=== PATIENT | female | born 1930 | race Caucasian/White ===

== ENCOUNTER 2017-03-06 03:39 | Observation (INO) | payer MEDICARE, OTHER ==
[~2017-03-06] VITALS: Ht 170.2 cm; Wt 66.6 kg
[~2017-03-06 03:39] MED LIST: ASPI-917 PO; ATOR40TA64 PO; CALC-191 PO; CAYE450C4 PO; CINN500C4 PO; CLOP75TA PO; GING500C2 PO; METF-200 PO; METF500T4 PO; TIMO15DR19 LEFT EYE; TUMERIC PO; UBID100C10 PO
--- NOTE | 2017-03-06 03:59 | ERPDOC ---
Departure Disposition Decision Date: Mar 06, 2017 Disposition Decision Time: 04:56 Disposition: 02 TO [facility] Impression Impression Impression: Primary Impression: Chest pain Chest pain type: precordial pain Qualified Codes: R07.2 - Precordial pain Severity: Severe Condition: Improved Seen By: Physician only Referrals: AVIVA TALBOT DO (Family) Problems/Meds/Labs Reviewed?: Yes Medications reviewed and manag: Yes Follow up care ordered?: Yes Mental Status: Alert HPI - Chest Pain General Chief Complaint: Chest Pain Stated Complaint: CP Time Seen by Provider: 03:46 Source: patient Exam Limitations: no limitations HPI - Chest Pain Initial Comments Patient awoke at home at 2:30 this morning with symptoms of generalized abdominal fullness as though she needed to have a bowel movement. When she got up to go to the bathroom she noticed she was having chest tightness and heaviness with a feeling that her throat was closing in, similar to when she has had cardiac chest pain in the past. Left 3 nitroglycerin at home with minimal improvement, and thereafter called her son to take her to the ER for evaluation. Patient has significant past medical history for coronary artery disease with multiple catheterizations and one stent placed. Occurred At: home Onset/Timing: Rapid Duration: 1-3 hrs Activities at Onset/Context: sleep Location: substernal Quality: tightness Associated Symptoms: DENIES: abdominal pain, back pain, diaphoresis, dizziness , edema, fast HR, fatigue, fever/chills, headache, heartburn, irregular HR, nausea/vomiting, rash, shortness of breath, slow HR, swelling/lump in chest, syncope, weakness Chest Pain Radiation: no radiation Nitro Today/Relief: 0.4 mg x 3, provided at home Aspirin Treatment Today: 325 mg x 1, provided at home Prior Chest Pain/Cardiac Annette: cardiac cath Hx of Similar Symptoms: Yes Allergies: Coded Allergies: No Known Drug Allergies (Verified Allergy, Unknown, 03/06/17) Past History Patient Surgical History heart cath per Dr. Gibson, 03-26-16. colonoscopy 03-25-12. EGD . bilateral distal tributary vessels on 07-01-[address] Casarez Past Medical History Metabolic: cancer, diabetes, hypercholesterolemia, hypertension Cardiac: CAD Musculoskeletal: back pain, osteoarthritis Surgical History General: appendix, gallbladder, other, tonsils Cardiac: cardiac bypass, cardiac cath, cardiac stent Vaccines Hx Influenza Vaccination: Yes (FALL 2013) Hx Pneumococcal Vaccination: Yes (2013) Social History Smoking Status: Never smoker Does patient use chewing tobac: No Second Hand Exposure: No Substance Use Type: does not use Alcohol Intake: none Marital Status: Housing: house Review of Systems Constitutional Constitutional: DENIES: appetite decrease, appetite increase, chills, dizziness , fever, weakness ENMT Ears: DENIES: pain Hearing: DENIES: hearing loss, tinnitus Balance: DENIES: vertigo Mouth/Throat: DENIES: change in swallowing, change in voice, hoarsness, painful swallowing, sore throat Cardiovascular Cardiac: chest pain, DENIES: dyspnea on exertion Rhythm/Rate: DENIES: irregular beat, palpitations, tachycardia Vascular: DENIES: pedal edema Pulmonary Respiratory: DENIES: cough, dyspnea, pleuritic chest pain GI Upper Abdomen: DENIES: dysphagia, heartburn/indigestion, nausea, pain, vomiting Lower Abdomen: DENIES: blood in stool, constipation, diarrhea, pain Comments Generalized low abdominal fullness General: DENIES: burning, dysuria, frequency, pain, urgency Musculoskeletal General: DENIES: cramps, joint pain, joint swelling, pain, weakness Integumentary Skin: DENIES: rash, sores Neurological General: DENIES: headache, numbness, tingling, vertigo, weakness Psychiatric Psychiatric: DENIES: anxiety, depression, nervousness Physical Exam General General Nourishment: well nourished, well developed, appears stated age, no acute distress General Body Habitus: well groomed Vitals and Pain First Documented Vital Signs Date Time Temp Pulse Resp B/P Pulse Ox O2 Delivery O2 Flow Rate FiO2 03/06/17 03:41 98.2 52 19 138/67 97 Room Air Weight: Kilograms: Height (feet): 5 Height (inches): 8.00 Triage Pain Scale: RN VS reviewed by Provider: Yes Normal Exams: Head: Normocephalic w/o trauma Eyes: Pupils are PERRLA w/ EOMI, No scleral icterus, irritation, or foreign bodies noted ENMT: No facial trauma, nasal exudates, pharyngeal erythema, or exudates are noted Neck: Full range of motion, without adenopathy, JVD, bruits or thyromegaly Chest/Resp: Clear all griffiths, with good airflow, and symmetry bilaterally CV: Regular rate and rhythm, without murmur or gallop, Pulses 2+ all extremities, capillary refill, <2 seconds all ext., no pedal edema noted Lymphatic: No lymphadenopathy, or lymphedema noted Musculoskeletal: No tenderness, or deformity noted, good range of motion, all extremities Integumentary: No rashes, hives, or bruising noted, hair and nails, without abnormality Neurologic: Patient is alert, and oriented, cranial nerves, motor/sensory/ cerebellar, exams w/o gross deficits, to observation Psychiatric: Patient exhibits, appropriate attention, emotion and affect Abdomen (brief) Abdominal Brief: FOUND: bowel normo active x4, soft, tender (minimal low abdominal tenderness, no guarding no rebounding), NOT FOUND: distended, hepatosplenomegaly Progress Results/Orders Orders Procedure Category Date Status Time EKG EKG 03/06/17 Logged Cbc W/Auto LAB 03/06/17 Complete Diff-Reflex Manual 03:54 Cmp - Comprehensive LAB 03/06/17 Complete Metabolic 03:54 Probnp LAB 03/06/17 Complete 03:54 Troponin I W LAB 03/06/17 Complete Hemolysis Index 03:54 Chest 1 View RAD 03/06/17 Taken 03:54 Iv Lock (Ed Only) EDM 03/06/17 Transmitted 03:54 Nitroglycerin PHA 03/06/17 Complete Ointment (Nitro-Bid) 04:00 Nitroglycerin PHA 03/06/17 Complete (Nitrostat) 04:00 Lipase LAB 03/06/17 Complete Metoclopramide PHA 03/06/17 Complete (Reglan Inj) 04:00 Normal Saline (Normal PHA 03/06/17 Complete Saline Iv) 04:00 Lab Results Laboratory Tests Test 03/06/17 03:51 White Blood Count 7.4T/MM3 Red Blood Count 3.62M/MM3 Hemoglobin 11.2GM/DL Hematocrit 33.2% Mean Corpuscular Volume 91.7UM3 Mean Corpuscular Hemoglobin 30.9UUG Mean Corpuscular Hemoglobin Concent 33.7GM/DL RDW Standard Deviation 45.1FL Platelet Count 130T/MM3 Mean Platelet Volume 10.6UM3 Immature Granulocyte % (Auto) 0.1% Neutrophils (%) (Auto) 47.1% Lymphocytes (%) (Auto) 44.6% Monocytes (%) (Auto) 6.5% Eosinophils (%) (Auto) 1.6% Basophils (%) (Auto) 0.1% Absolute Immature Granulocyte (auto 0.01T/MM3 Absolute Neutrophils (auto) 3.5T/MM3 Absolute Lymphocytes (auto) 3.3T/MM3 Absolute Monocytes (auto) 0.5T/MM3 Absolute Eosinophils (auto) 0.1T/MM3 Absolute Basophils (auto) 0.0T/MM3 Turbidity < 20 Sodium Level 147MEQ/L Potassium Level 4.1MEQ/L Chloride Level 108MEQ/L Carbon Dioxide Level 26MEQ/L Anion Gap 13MEQ/L Blood Urea Nitrogen 16.0MG/DL Creatinine 0.6MG/DL Glomerular Filtration Rate Calc 95 BUN/Creatinine Ratio 27RATIO Glucose Level 108MG/DL Calculated Osmolality 284MOSM/KG Calcium Level 10.1MG/DL Total Bilirubin 1.90MG/DL Icterus Index < 2 Aspartate Amino Transf (AST/SGOT) 23U/L Alanine Aminotransferase (ALT/SGPT) 29U/L Alkaline Phosphatase 37U/L Troponin I < 0.012ng/ml CB-Vin-T-Type Natriuretic Peptide 211PG/ML Total Protein 6.1G/DL Albumin 3.8G/DL Globulin 2.3G/DL Albumin/Globulin Ratio 1.7RATIO Lipase 175U/L Chemistry Specimen Hemolysis < 15 Medications Current ED Medications Nitroglycerin (Nitro-Bid) 1 inch O ONCE TOP Last administered on 03/06/17 04: 06; Start 03/06/17 at 04:00; Stop 03/06/17 at 04:01; Status DC Nitroglycerin (Nitrostat) 0.4 mg O ONCE SL Last administered on 03/06/17 04: 05; Start 03/06/17 at 04:00; Stop 03/06/17 at 04:01; Status DC Metoclopramide HCl 6 mg 6 mg O ONCE IV Last administered on 03/06/17 04:04; Start 03/06/17 at 04:00; Stop 03/06/17 at 04:01; Status DC Sodium Chloride (Normal Saline IV) 1,000 ml @ 0 mls/hr Q0M ONCE IV Last administered on 03/06/17 04:06; Start 03/06/17 at 04:00; Stop 03/06/17 at 04:01 ; Status DC Progress Progress EKG shows a normal sinus rhythm without ischemia or infarction. Patient does have periodic supraventricular beats CBC- n CMP/L - n Troponin - n Chest x-ray - n Patient had significant improvement after nitroglycerin with 1 inch of paste 2 almost complete resolution of pain. Case discussed with Dr. Talbot, will admit for chest pain rule out, observe on telemetry, with consult to AVIVA Francis MD Mar 06, 2017 03:59
[2017-03-06] MEDS ORDERED: NITROGLYCERIN 0.4 MG SUBLINGUAL TABLET SL ONE (04:00)
[2017-03-06] MEDS ORDERED: NORMAL SALINE 1,000 ML IV ONE (04:00)
[2017-03-06] MEDS ORDERED: NITROGLYCERIN 2% OINTMENT 1 G PACKET TOP ONE (04:00)
[2017-03-06] MEDS ORDERED: METOCLOPRAMIDE 10mg/2ml INJECTION IV ONE (04:00)
[2017-03-06 04:06] LABS: BASOPHILS % (AUTO) 0.1 % (0-2); EOSINOPHILS # (AUTO) 0.1 T/MM3 (0-0.5); EOSINOPHILS % (AUTO) 1.6 % (0-4); HCT - HEMATOCRIT 33.2 % (36-46); HGB - HEMOGLOBIN 11.2 GM/DL (12-16); IMMATURE GRANULOCYTE # (AUTO) 0.01 T/MM3 (0.00-0.03); IMMATURE GRANULOCYTE % (AUTO) 0.1 % (0.0-0.5); LYMPHOCYTES # (AUTO) 3.3 T/MM3 (1-4.8); LYMPHOCYTES % (AUTO) 44.6 % (23-45); MEAN CORPUSCULAR HGB 30.9 UUG (26-34); MEAN CORPUSCULAR HGB CONC(MCHC 33.7 GM/DL (31-37); MEAN CORPUSCULAR VOLUME 91.7 UM3 (80-100); MEAN PLATELET VOLUME 10.6 UM3 (9.4-12.4); MONOCYTES # (AUTO) 0.5 T/MM3 (0-0.8); MONOCYTES % (AUTO) 6.5 % (0-9.0); NEUTROPHILS #(AUTO)-ABSOLUTE 3.5 T/MM3 (1.8-7.7); NEUTROPHILS % (AUTO) 47.1 % (33-66); RED BLOOD COUNT 3.62 M/MM3 (4.00-5.20); WBC - WHITE BLOOD COUNT 7.4 T/MM3 (4.5-11.0)
[2017-03-06 04:16] LABS: ALBUMIN 3.8 G/DL (3.5-5.0); ALBUMIN/GLOBULIN RATIO 1.7 RATIO (1.1-2.2); ALKALINE PHOSPHATASE 37 U/L (38-126); ALT (SGPT) 29 U/L (9-52); ANION GAP 13 MEQ/L (5-15); AST (SGOT) 23 U/L (14-36); BUN/CREATININE RATIO 27 RATIO (6-26); CALCIUM 10.1 MG/DL (8.4-10.2); CHLORIDE 108 MEQ/L (98-107); CO2 - CARBON DIOXIDE 26 MEQ/L (22-30); CREATININE 0.6 MG/DL (0.7-1.2); GLOMERULAR FILTRATION RATE 95; GLUCOSE 108 MG/DL (65-110); POTASSIUM 4.1 MEQ/L (3.6-5); SODIUM 147 MEQ/L (134-144); TOTAL PROTEIN 6.1 G/DL (6.3-8.2)
--- NOTE | 2017-03-06 04:25 | NUR ---
IMAGING IN ROOM FOR PORTABLE CXR AT THIS TIME.
[2017-03-06 04:26] LABS: PROBNP 211 PG/ML (0-175)
--- NOTE | 2017-03-06 04:30 | NUR ---
CP PT REPORTS CP IS IMPROVED AND RATES IT 1/10 AT THIS TIME.
[2017-03-06] MEDS ORDERED: SITA1TAB2 PO (04:41)
[2017-03-06] MEDS ORDERED: NITROGLYCERIN 0.4 MG SL PRN (05:00)
--- NOTE | 2017-03-06 05:20 | NUR ---
REPORT GIVEN TO SHREYA BURTON AT THIS TIME.
--- NOTE | 2017-03-06 05:37 | NUR ---
DEPART PT IS TRANSFERRED VIA CART TO MEDICAL UNIT, CARE IS TRANSFERRED TO SHREYA RN WHO IS AT BEDSIDE.
--- NOTE | 2017-03-06 05:37 | NUR ---
ADMIT STATUS ambulates from cart to BR. States slight light-headedness as up. Instructed to call for assist as up. Denies chest pain or pressure. Denies dyspnea with the activity. Lung with crackles bases. Cooperative with admission process. Tele indicates SB
[2017-03-06 05:48] VITALS: Ht 170.2 cm; Wt 66.6 kg
[2017-03-06 05:49] VITALS: BP 140/66; PULSE 58; RESP 20; TEMP 97.7; O2SAT 96
--- NOTE | 2017-03-06 06:40 | NUR ---
Dr. Dr. Jones is aware of pt. admission, orders received for home meds to be restarted, Dr. Gibson to be consulted.
--- NOTE | 2017-03-06 07:10 | NUR ---
comfort states "ache" at back of L shoulder, radiating down L arm. States pain in L hand as peanut roaster tightly. VS stable, no changes noted on tele strip. Pt. states "I think it is just a muscle ache". Denies pain at chest area. Instructed to notify if symptoms persist or get worse. Report given to day RN, will monitor
[2017-03-06 07:18] VITALS: BP 130/65; PULSE 55; RESP 20; O2SAT 99
[2017-03-06 07:52] VITALS: BP 111/57; PULSE 56; RESP 16; TEMP 97.7; O2SAT 98
--- NOTE | 2017-03-06 07:53 | DI ---
Indication: ITS.REASON: chest pain PROCEDURE: CHEST 1 VIEW: Encounter: Initial Comparison: Chest CT dated October 05, 2016 and chest x-ray dated October 08, 2016 Findings: The lungs are clear. No pleural effusion or pneumothorax. Heart size is unchanged. There is possible thickening of the right paratracheal stripe, some of which could be due to artifact from rotation. Pulmonary vascularity is normal. Impression: No focal pneumonia. .
[2017-03-06] MEDS ORDERED: METFORMIN 500 MG TABLET PO SCH (08:00)
[2017-03-06] MEDS ORDERED: SITAGLIPTIN 100 MG TABLET PO SCH (08:00)
--- NOTE | 2017-03-06 08:00 | NUR ---
Pain update Patient thinks her pain in her left shoulder was probably a pulled muscle. States pain has improved. Denies any needs at this time.
[2017-03-06 08:07] VITALS: PULSE 54
[2017-03-06] MEDS ORDERED: POM CLOPIDOGREL 75 MG TABLET PO SCH (09:00)
[2017-03-06] MEDS ORDERED: COENZYME Q10 200 MG TABLET PO SCH (09:00)
[2017-03-06] MEDS ORDERED: MULTIVITAMIN + MINERAL TABLET PO SCH (09:00)
[2017-03-06] MEDS ORDERED: ASPIRIN *EC* 325mg TABLET PO SCH (09:00)
[2017-03-06] MEDS ORDERED: GINGER 500 MG PO SCH (09:00)
[2017-03-06] MEDS ORDERED: TURMERIC 500 MG PO SCH (09:00)
[2017-03-06] MEDS ORDERED: CINNAMON 500 MG PO SCH (09:00)
[2017-03-06] MEDS ORDERED: CAYENNE PO SCH (09:00)
[2017-03-06] MEDS ORDERED: CALCIUM 600mg + VIT D 400 TABLET PO SCH (09:00)
[2017-03-06] MEDS: SITAGLIPTIN PO SCH ×2 (11:07→17:23)
[2017-03-06] MEDS: METFORMIN PO SCH ×2 (11:07→17:23)
--- NOTE | 2017-03-06 12:20 | CONSPD ---
OCTAVIO BHAKTA [employer] 03/06/17 1157: Consultation Info Date DATE: 03/06/17 TIME: 11:54 Date of Consultation: Mar 06, 2017 Attending Physician: Aviva Talbot DO Reason for Consultation: chest pain HPI - Adult Date DATE: 03/06/17 TIME: 11:54 General Date of Admission Date of Admission: Mar 06, 2017 at 04:57 Chief Complaint: chest pain History of Present Illness Tiffany is an 86 year old female who is well known to Dr. 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 When she got up to go to the bathroom she noticed she was having chest tightness and heaviness with a feeling that her throat was closing in, similar to when she has had cardiac chest pain in the past. Took 3 nitroglycerin at home with minimal improvement, and thereafter called her son to take her to the ED for evaluation. She was cathed in July after not taking her Plavix for a period of time, and her LAD stent was found to be widely patent. Past Medical History Past Medical History Metabolic: cancer, diabetes, hypercholesterolemia, hypertension Cardiac: CAD Musculoskeletal: back pain, osteoarthritis Surgical History General: appendix, gallbladder, other, tonsils Cardiac: cardiac bypass, cardiac cath, cardiac stent Current Medications Home Meds Active Scripts Acetaminophen (Tylenol Extra Strength) 500 Mg Tablet, 1-2 TAB PO Q6H Y for PAIN/ FEVER for 30 Days, TAB Prov:AVIVA TALBOT DO 03/06/17 Clopidogrel Bisulfate (Plavix) 75 Mg Tablet, 75 MG PO DAILY for 30 Days, #30 TAB 10 Refills Prov:EMILY CROWDER 08/02/16 Reported Medications Sitagliptin Phos/Metformin HCl (Janumet 50-500 mg Tablet) 1 Tab Tablet, 1 TAB PO BID, #60 TAB 5 Refills 03/06/17 Aspirin *EC* (Aspirin EC) 325 Mg Tablet., 1 TAB PO DAILY, #30 TAB 5 Refills 08/01/16 Calcium Carbonate/Vitamin D3 (Calcium + Vitamin D Tablet) 1 Each Tablet, 1 TAB PO DAILY 04/28/16 Atorvastatin Calcium (Atorvastatin Calcium) 40 Mg Tablet, 40 MG PO HS 04/28/16 [Tumeric] No Conflict Check, 450 MG PO DAILY 03/24/12 Zoya (Zoya) 500 Mg Capsule, 500 MG PO DAILY 03/24/12 Cinnamon Bark (Cinnamon) 500 Mg Capsule, 500 MG PO DAILY 03/24/12 Cayenne (Cayenne) 450 Mg Capsule, 450 MG PO DAILY 03/24/12 Timolol (Betimol) 15 Ml Drops, 15 ML LEFT EYE HS 03/24/12 Ubidecarenone (Coq-10) 100 Mg Capsule, 100 MG PO DAILY 10/17/10 Allergies: Coded Allergies: No Known Drug Allergies (Verified Allergy, Unknown, 03/06/17) Family History NOT FOUND: CAD, CHF Vaccines 08/2016 NO BROKEN SKIN Social History Smoking Status: Never smoker Does patient use chewing tobac: No Second Hand Exposure: No Substance Use Type: does not use Alcohol Intake: none Marital Status: Housing: house Current Occupational Status: retired Advance Directives: Yes DPOA for Healthcare Only Review of Systems Constitutional: DENIES: chills, dizziness, fever, syncope, weakness Eyes General: DENIES: pain Vision: DENIES: double vision ENMT Hearing: DENIES: tinnitus Balance: DENIES: vertigo Sinuses: NOT FOUND: rhinorrhea Mouth/Throat: DENIES: sore throat Cardiovascular chest pain, murmur, DENIES: dyspnea on exertion, orthopnea, paroxysmal nocturnal dysp Rhythm/Rate: DENIES: irregular beat, palpitations, tachycardia Vascular: pedal edema Pulmonary Respiratory: DENIES: cough, sputum GI Upper Abdomen: other (abdominal fullness), DENIES: nausea, vomiting Lower Abdomen: DENIES: blood in stool, diarrhea General: DENIES: dysuria Integumentary Skin: DENIES: rash, sores Neurological General: DENIES: headache, numbness, syncope, weakness All Other Systems All Other Systems: Reviewed (remainder of 10-point ROS Neg.) Physical Exam General General Nourishment: well nourished, well developed, apparent age General Body Habitus: well groomed Vital Signs Vital Signs Date Time Temp Pulse Resp B/P Pulse Ox O2 Delivery O2 Flow Rate FiO2 03/06/17 08:07 54 03/06/17 07:52 97.7 16 111/57 98 Room Air Height (Feet): 5 Height (Inches): 7.00 Telemetry Rhythm: Sinus Rhythm Telemetry Ectopy: PVC ENMT Brief: FOUND: mucosa moist Neck Brief: NOT FOUND: JVD, carotid bruits Respiratory Brief: FOUND: clear all griffiths, equal bilaterally, NOT FOUND: rales , wheezes Cardiovascular (brief) Cardiac Brief: FOUND: murmur (I/ systolic ejection murmur), pedal edema ( trace), regular rate, regular rhythm Abdomen (brief) Abdominal Brief: FOUND: BS normo active x4, soft, NOT FOUND: tender Integumentary (brief) Integumentary Brief: FOUND: dry, pink, warm Neurologic RN Documented GCS Eye Opening: Verbal: Motor: Total: Psychiatric (brief) FOUND: alert, oriented Laboratory Laboratory Tests Test 03/06/17 03:51 03/06/17 09:06 White Blood Count 7.4T/MM3 Red Blood Count 3.62M/MM3 Hemoglobin 11.2GM/DL Hematocrit 33.2% Mean Corpuscular Volume 91.7UM3 Mean Corpuscular Hemoglobin 30.9UUG Mean Corpuscular Hemoglobin Concent 33.7GM/DL RDW Standard Deviation 45.1FL Platelet Count 130T/MM3 Mean Platelet Volume 10.6UM3 Immature Granulocyte % (Auto) 0.1% Neutrophils (%) (Auto) 47.1% Lymphocytes (%) (Auto) 44.6% Monocytes (%) (Auto) 6.5% Eosinophils (%) (Auto) 1.6% Basophils (%) (Auto) 0.1% Absolute Immature Granulocyte (auto 0.01T/MM3 Absolute Neutrophils (auto) 3.5T/MM3 Absolute Lymphocytes (auto) 3.3T/MM3 Absolute Monocytes (auto) 0.5T/MM3 Absolute Eosinophils (auto) 0.1T/MM3 Absolute Basophils (auto) 0.0T/MM3 Turbidity < 20 Sodium Level 147MEQ/L Potassium Level 4.1MEQ/L Chloride Level 108MEQ/L Carbon Dioxide Level 26MEQ/L Anion Gap 13MEQ/L Blood Urea Nitrogen 16.0MG/DL Creatinine 0.6MG/DL Glomerular Filtration Rate Calc 95 BUN/Creatinine Ratio 27RATIO Glucose Level 108MG/DL Calculated Osmolality 284MOSM/KG Calcium Level 10.1MG/DL Total Bilirubin 1.90MG/DL Icterus Index < 2 Aspartate Amino Transf (AST/SGOT) 23U/L Alanine Aminotransferase (ALT/SGPT) 29U/L Alkaline Phosphatase 37U/L Troponin I < 0.012ng/ml < 0.012ng/ml XH-Lqr-V-Type Natriuretic Peptide 211PG/ML Total Protein 6.1G/DL Albumin 3.8G/DL Globulin 2.3G/DL Albumin/Globulin Ratio 1.7RATIO Lipase 175U/L Chemistry Specimen Hemolysis < 15 < 15 Laboratory Tests Test 03/06/17 03:51 03/06/17 09:06 White Blood Count 7.4T/MM3 Red Blood Count 3.62M/MM3 Hemoglobin 11.2GM/DL Hematocrit 33.2% Mean Corpuscular Volume 91.7UM3 Mean Corpuscular Hemoglobin 30.9UUG Mean Corpuscular Hemoglobin Concent 33.7GM/DL RDW Standard Deviation 45.1FL Platelet Count 130T/MM3 Mean Platelet Volume 10.6UM3 Immature Granulocyte % (Auto) 0.1% Neutrophils (%) (Auto) 47.1% Lymphocytes (%) (Auto) 44.6% Monocytes (%) (Auto) 6.5% Eosinophils (%) (Auto) 1.6% Basophils (%) (Auto) 0.1% Absolute Immature Granulocyte (auto 0.01T/MM3 Absolute Neutrophils (auto) 3.5T/MM3 Absolute Lymphocytes (auto) 3.3T/MM3 Absolute Monocytes (auto) 0.5T/MM3 Absolute Eosinophils (auto) 0.1T/MM3 Absolute Basophils (auto) 0.0T/MM3 Turbidity < 20 Sodium Level 147MEQ/L Potassium Level 4.1MEQ/L Chloride Level 108MEQ/L Carbon Dioxide Level 26MEQ/L Anion Gap 13MEQ/L Blood Urea Nitrogen 16.0MG/DL Creatinine 0.6MG/DL Glomerular Filtration Rate Calc 95 BUN/Creatinine Ratio 27RATIO Glucose Level 108MG/DL Calculated Osmolality 284MOSM/KG Calcium Level 10.1MG/DL Total Bilirubin 1.90MG/DL Icterus Index < 2 Aspartate Amino Transf (AST/SGOT) 23U/L Alanine Aminotransferase (ALT/SGPT) 29U/L Alkaline Phosphatase 37U/L Troponin I < 0.012ng/ml < 0.012ng/ml [id number]-Gmk-[id number]-Type Natriuretic Peptide 211PG/ML Total Protein 6.1G/DL Albumin 3.8G/DL Globulin 2.3G/DL Albumin/Globulin Ratio 1.7RATIO Lipase 175U/L Chemistry Specimen Hemolysis < 15 < 15 EKG SR, occasional PVCs Radiology DATE OF EXAM: 03/06/17 ORDERING DOCTOR: AVIVA MULLER MD TYPE OF EXAM: CHEST 1 VIEW REASON FOR EXAM: chest pain Indication: ITS.REASON: chest pain PROCEDURE: CHEST 1 VIEW: Encounter: Initial Comparison: Chest CT dated October 05, 2016 and chest x-ray dated October 08, 2016 Findings: The lungs are clear. No pleural effusion or pneumothorax. Heart size is unchanged. There is possible thickening of the right paratracheal stripe, some of which could be due to artifact from rotation. Pulmonary vascularity is normal. Impression: No focal pneumonia. Impression/Recommendation Problems: (1) Chest pain Status: Acute Assessment & Plan: Chest pain which radiated into shoulder and neck which occurred at rest, not relieved initially with nitro, non reproducible, no accompanied symptoms. Reports had shoulder pain later this morning that felt muscular in nature. EKG without ischemic changes, troponin negative X2. Not likely Cardiac. (2) Atherosclerotic heart disease of [place] coronary artery with other forms of angina pectoris Status: Chronic Assessment & Plan: Stent to LAD in March, Heart cath done in July for chest pain while patient was off Plavix, Stent was widely patent at that time. (3) Non-rheumatic tricuspid valve insufficiency Status: Chronic Assessment & Plan: Continue current therapy with routine monitoring (4) Diabetes mellitus Status: Chronic Assessment & Plan: Per Dr. Talbot. (5) Mixed hyperlipidemia Status: Chronic Assessment & Plan: Takes Crestor 10mg daily as did not tolerate Lipitor Recommendation Chest pain which radiated into shoulder and neck which occurred at rest, not relieved initially with nitro, non reproducible, no accompanied symptoms. Reports had shoulder pain later this morning that felt muscular in nature. EKG without ischemic changes, troponin negative X2. Not likely Cardiac. Thank you for allowing us to participate in this patient's care. BETH HERRERA MD 03/07/17 1352: Past Medical History Current Medications Home Meds Active Scripts Acetaminophen (Tylenol Extra Strength) 500 Mg Tablet, 1-2 TAB PO Q6H Y for PAIN/ FEVER for 30 Days, TAB Prov:AVIVA TALBOT DO 03/06/17 Clopidogrel Bisulfate (Plavix) 75 Mg Tablet, 75 MG PO DAILY for 30 Days, #30 TAB 10 Refills Prov:EMILY CROWDER ALISA 08/02/16 Reported Medications Sitagliptin Phos/Metformin HCl (Janumet 50-500 mg Tablet) 1 Tab Tablet, 1 TAB PO BID, #60 TAB 5 Refills 03/06/17 Aspirin *EC* (Aspirin EC) 325 Mg Tablet.dr, 1 TAB PO DAILY, #30 TAB 5 Refills 08/01/16 Calcium Carbonate/Vitamin D3 (Calcium + Vitamin D Tablet) 1 Each Tablet, 1 TAB PO DAILY 04/28/16 Atorvastatin Calcium (Atorvastatin Calcium) 40 Mg Tablet, 40 MG PO HS 04/28/16 [Tumeric] No Conflict Check, 450 MG PO DAILY 03/24/12 Zoya (Zoya) 500 Mg Capsule, 500 MG PO DAILY 03/24/12 Cinnamon Bark (Cinnamon) 500 Mg Capsule, 500 MG PO DAILY 03/24/12 Cayenne (Cayenne) 450 Mg Capsule, 450 MG PO DAILY 03/24/12 Timolol (Betimol) 15 Ml Drops, 15 ML LEFT EYE HS 03/24/12 Ubidecarenone (Coq-10) 100 Mg Capsule, 100 MG PO DAILY 10/17/10 Allergies: Coded Allergies: No Known Drug Allergies (Verified Allergy, Unknown, 03/06/17) Impression/Recommendation Recommendation After examining the patient I agree with the above assessment. I am involved in the formulation of the patient's plan of care. OCTAVIO BHAKTA APRN Mar 06, 2017 11:57 BETH HERRERA MD Mar 07, 2017 13:52
--- NOTE | 2017-03-06 13:34 | NUR ---
Status Patient alert and oriented. Has denied any discomfort since this am. Patient does complain of some lightheadedness/dizziness when up ambulating.
--- NOTE | 2017-03-06 13:51 | HPPDOC ---
HPI - Adult Date DATE: 03/06/17 TIME: 13:44 General Chief Complaint: chest pain History of Present Illness Karyn was admitted through the emergency department last evening after having chest pain that was relieved with nitroglycerin. She indicates that she took a total of 3 nitroglycerin at home prior to being brought to the emergency department. At that time her chest pain was not fully relieved. Upon arrival at the emergency department she was given 1 additional sublingual nitroglycerin and an inch of nitroglycerin paste on her chest. This relieved her pain. She did undergo previous heart catheterization which demonstrated diffuse disease along with a widely patent stent in the LAD. Past Medical History Past Medical History Patient's Medical History: (1) CAD (coronary artery disease) (2) Diabetes mellitus (3) Mixed hyperlipidemia (4) Non-rheumatic tricuspid valve insufficiency (5) Other secondary pulmonary hypertension (6) Nonrheumatic aortic valve insufficiency (7) Atherosclerotic heart disease of [place] coronary artery with other forms of angina pectoris (8) Chest pain Surgical History Patient's Surgical History: heart cath per Dr. Gibson, 03-26-16. colonoscopy 03-25-12. EGD . bilateral distal tributary vessels on 07-01-[address] Casarez Current Medications Home Meds Active Scripts Clopidogrel Bisulfate (Plavix) 75 Mg Tablet, 75 MG PO DAILY for 30 Days, #30 TAB 10 Refills Prov:EMILY CROWDER 08/02/16 Reported Medications Sitagliptin Phos/Metformin HCl (Janumet 50-500 mg Tablet) 1 Tab Tablet, 1 TAB PO BID, #60 TAB 5 Refills 03/06/17 Aspirin *EC* (Aspirin EC) 325 Mg Tablet., 1 TAB PO DAILY, #30 TAB 5 Refills 08/01/16 Calcium Carbonate/Vitamin D3 (Calcium + Vitamin D Tablet) 1 Each Tablet, 1 TAB PO DAILY 04/28/16 Atorvastatin Calcium (Atorvastatin Calcium) 40 Mg Tablet, 40 MG PO HS 04/28/16 [Tumeric] No Conflict Check, 450 MG PO DAILY 03/24/12 Zoya (Zoya) 500 Mg Capsule, 500 MG PO DAILY 03/24/12 Cinnamon Bark (Cinnamon) 500 Mg Capsule, 500 MG PO DAILY 03/24/12 Cayenne (Cayenne) 450 Mg Capsule, 450 MG PO DAILY 03/24/12 Timolol (Betimol) 15 Ml Drops, 15 ML LEFT EYE HS 03/24/12 Ubidecarenone (Coq-10) 100 Mg Capsule, 100 MG PO DAILY 10/17/10 Allergies: Coded Allergies: No Known Drug Allergies (Verified Allergy, Unknown, 03/06/17) Family History Family History: non contributory/unavailable at this time Social History Smoking Status: Never smoker Does patient use chewing tobac: No Second Hand Exposure: No Substance Use Type: does not use Alcohol Intake: none Marital Status: Housing: house Current Occupational Status: retired Advance Directives: Yes DPOA for Healthcare Only Review of Systems Constitutional: DENIES: chills, dizziness, fever, insomnia, weight gain, weight loss Cardiovascular chest pain, murmur, see HPI, DENIES: dyspnea on exertion, paroxysmal nocturnal dysp Pulmonary Respiratory: DENIES: cough, hyperventilation, pleuritic chest pain, sputum GI Upper Abdomen: DENIES: dysphagia, food intolerances, hematemesis, nausea, vomiting Musculoskeletal Comments She has a history of back pain requiring back surgery Neurological General: weakness, DENIES: headache, numbness, seizures, syncope Psychiatric Psychiatric: DENIES: depression, emotional instability, nervousness Hematologic/Lymphatic DENIES: anemia, bleeding gums, easy bruising, frequent nosebleeds Allergic/Immunological DENIES: frequent infections, hives, sneezing All Other Systems All Other Systems: Reviewed (remainder of 10-point ROS Neg.) Physical Exam General General Nourishment: well nourished, well developed, apparent age, adult General Body Habitus: well groomed Vital Signs Vital Signs Date Time Temp Pulse Resp B/P Pulse Ox O2 Delivery O2 Flow Rate FiO2 03/06/17 08:07 54 03/06/17 07:52 97.7 16 111/57 98 Room Air Height (Feet): 5 Height (Inches): 7.00 Telemetry Rhythm: Sinus Rhythm Telemetry Ectopy: PVC Eyes Brief: FOUND: EOMI, PERRL, NOT FOUND: scleral icterus Neck Brief: NOT FOUND: adenopathy, carotid bruits, thyromegaly Respiratory Brief: FOUND: clear all griffiths, equal bilaterally, NOT FOUND: wheezes Cardiovascular (brief) Cardiac Brief: FOUND: murmur, regular rate, regular rhythm, NOT FOUND: pedal edema Abdomen (brief) Abdominal Brief: FOUND: BS normo active x4, soft, NOT FOUND: distended, hepatosplenomegaly, tender Lymphatic (brief) Lymphatic Brief: NOT FOUND: adenopathy, lymphedema Musculoskeletal (brief) Musculoskeletal Brief: NOT FOUND: deformity, loss of motion, spasm, tenderness Integumentary (brief) Integumentary Brief: FOUND: dry, pink, warm, NOT FOUND: rash Neurologic (brief) Neurological Brief: FOUND: cranial 2-12 intact, motor, sensory Neurologic RN Documented GCS Eye Opening: Verbal: Motor: Total: Psychiatric (brief) FOUND: alert, attentive, normal affect, oriented Laboratory Laboratory Tests Test 03/06/17 03:51 03/06/17 09:06 White Blood Count 7.4T/MM3 Red Blood Count 3.62M/MM3 Hemoglobin 11.2GM/DL Hematocrit 33.2% Mean Corpuscular Volume 91.7UM3 Mean Corpuscular Hemoglobin 30.9UUG Mean Corpuscular Hemoglobin Concent 33.7GM/DL RDW Standard Deviation 45.1FL Platelet Count 130T/MM3 Mean Platelet Volume 10.6UM3 Immature Granulocyte % (Auto) 0.1% Neutrophils (%) (Auto) 47.1% Lymphocytes (%) (Auto) 44.6% Monocytes (%) (Auto) 6.5% Eosinophils (%) (Auto) 1.6% Basophils (%) (Auto) 0.1% Absolute Immature Granulocyte (auto 0.01T/MM3 Absolute Neutrophils (auto) 3.5T/MM3 Absolute Lymphocytes (auto) 3.3T/MM3 Absolute Monocytes (auto) 0.5T/MM3 Absolute Eosinophils (auto) 0.1T/MM3 Absolute Basophils (auto) 0.0T/MM3 Turbidity < 20 Sodium Level 147MEQ/L Potassium Level 4.1MEQ/L Chloride Level 108MEQ/L Carbon Dioxide Level 26MEQ/L Anion Gap 13MEQ/L Blood Urea Nitrogen 16.0MG/DL Creatinine 0.6MG/DL Glomerular Filtration Rate Calc 95 BUN/Creatinine Ratio 27RATIO Glucose Level 108MG/DL Calculated Osmolality 284MOSM/KG Calcium Level 10.1MG/DL Total Bilirubin 1.90MG/DL Icterus Index < 2 Aspartate Amino Transf (AST/SGOT) 23U/L Alanine Aminotransferase (ALT/SGPT) 29U/L Alkaline Phosphatase 37U/L Troponin I < 0.012ng/ml < 0.012ng/ml VH-Utu-B-Type Natriuretic Peptide 211PG/ML Total Protein 6.1G/DL Albumin 3.8G/DL Globulin 2.3G/DL Albumin/Globulin Ratio 1.7RATIO Lipase 175U/L Chemistry Specimen Hemolysis < 15 < 15 Concerns For Adverse Events Patient will be admitted for 23 hour observation with cardiology consultation. She does have chest pain was relieved with nitroglycerin. As to whether or not this is cardiac in nature as opposed to acid reflux is not clear at this point. She also has a history of cardiac valvular disorder with pulmonary hypertension. Assessment & Plan Problems: (1) Chest pain Status: Acute Qualifiers: Chest pain type: precordial pain Qualified Codes: R07.2 - Precordial pain (2) Atherosclerotic heart disease of [place] coronary artery with other forms of angina pectoris Status: Chronic (3) Nonrheumatic aortic valve insufficiency Status: Chronic (4) Other secondary pulmonary hypertension Status: Chronic (5) Non-rheumatic tricuspid valve insufficiency Status: Chronic (6) Mixed hyperlipidemia Status: Chronic (7) Diabetes mellitus Status: Chronic Qualifiers: Diabetes mellitus type: type 2 (8) CAD (coronary artery disease) Status: Acute Code Status Full Code Hospital Course Summary Disclaimer The hospital course summary below is not to be considered part of the above Progress Note. AIVVA TALBOT DO Mar 06, 2017 13:48
[2017-03-06 15:34] VITALS: BP 122/61; PULSE 47; RESP 16; TEMP 97.5; O2SAT 99
--- NOTE | 2017-03-06 17:34 | NUR ---
Status Patient continues to deny pain. Patient has been asymptomatic. Patient up in chair, good appetite.
[2017-03-06] MEDS ORDERED: ACET-2723 PO (18:40)
--- NOTE | 2017-03-06 18:45 | DSPDOC ---
Discharge Diagnoses Discharge Diagnoses (1) Chest pain (2) Atherosclerotic heart disease of [place] coronary artery with other forms of angina pectoris (3) Nonrheumatic aortic valve insufficiency (4) Other secondary pulmonary hypertension (5) Non-rheumatic tricuspid valve insufficiency (6) Mixed hyperlipidemia (7) Diabetes mellitus (8) CAD (coronary artery disease) Hospital Course Patient was admitted for 23 hour obs with cardiology consult. Serial cardiac enzymes are negative. Dr. Gibson has diagnosed her with noncardiac chest pain. I will discharge her to home with outpatient follow up. Tylenol ES as needed for chest wall pain. She is instructed to return to ER if condition worsens Home Meds Active Scripts Acetaminophen (Tylenol Extra Strength) 500 Mg Tablet, 1-2 TAB PO Q6H Y for PAIN/ FEVER for 30 Days, TAB Prov:AVIVA TALBOT DO 03/06/17 Clopidogrel Bisulfate (Plavix) 75 Mg Tablet, 75 MG PO DAILY for 30 Days, #30 TAB 10 Refills Prov:EMILY CROWDER 08/02/16 Reported Medications Sitagliptin Phos/Metformin HCl (Janumet 50-500 mg Tablet) 1 Tab Tablet, 1 TAB PO BID, #60 TAB 5 Refills 03/06/17 Aspirin *EC* (Aspirin EC) 325 Mg Tablet., 1 TAB PO DAILY, #30 TAB 5 Refills 08/01/16 Calcium Carbonate/Vitamin D3 (Calcium + Vitamin D Tablet) 1 Each Tablet, 1 TAB PO DAILY 04/28/16 Atorvastatin Calcium (Atorvastatin Calcium) 40 Mg Tablet, 40 MG PO HS 04/28/16 [Tumeric] No Conflict Check, 450 MG PO DAILY 03/24/12 Zoya (Zoya) 500 Mg Capsule, 500 MG PO DAILY 03/24/12 Cinnamon Bark (Cinnamon) 500 Mg Capsule, 500 MG PO DAILY 03/24/12 Cayenne (Cayenne) 450 Mg Capsule, 450 MG PO DAILY 03/24/12 Timolol (Betimol) 15 Ml Drops, 15 ML LEFT EYE HS 03/24/12 Ubidecarenone (Coq-10) 100 Mg Capsule, 100 MG PO DAILY 10/17/10 Discharge Disposition Discharged to home Copies To 1: AVIVA TALBOT DO Copies To 2: BETH GIBSON MD Follow up Condition at time of discharge: Good Follow up [facility] in 10-14 days AVIVA TALBOT DO Mar 06, 2017 18:44
--- NOTE | 2017-03-06 19:01 | NUR ---
Discharge Patient understands discharge instructions. Questions answered. IV dc'd, cath intact. Family to come transfer patient.
[2017-03-06] MEDS ORDERED: TIMOLOL GFS 0.5% LEFT EYE SCH (22:00)
[2017-03-06] MEDS ORDERED: EYE LEFT EYE SCH (22:00)
[2017-03-07] MEDS ORDERED: POM ASPIRIN *EC* 81mg TABLET PO SCH (09:00)
== END 2017-03-06 19:15 | disposition home or self-care (01) ==
LOC: ED 03:39 → EDHOLD 04:57 → MED 05:37
PROVIDERS: ADMIT Internal Medicine; ATTEND Internal Medicine
DX: R07.2 Precordial pain (principal); I25.118 Atherosclerotic heart disease of native coronary artery with other forms of angina pectoris; I35.1 Nonrheumatic aortic (valve) insufficiency; I27.2 Other secondary pulmonary hypertension; I36.1 Nonrheumatic tricuspid (valve) insufficiency; E78.2 Mixed hyperlipidemia; E11.9 Type 2 diabetes mellitus without complications; Z95.1 Presence of aortocoronary bypass graft; Z95.5 Presence of coronary angioplasty implant and graft; Z79.82 Long term (current) use of aspirin; Z79.899 Other long term (current) drug therapy
CPT/HCPCS: 36415; 71010; 80053; 83690; 83880; 84484; 85025; 93005; 96361; 96374; 99284; A9270; G0378; J2765; J7030; 99218